=== PATIENT | female | born 1960 | race Caucasian/White ===

== ENCOUNTER 2017-05-18 06:54 | Day surgery (SDC) | payer OTHER ==
[2017-05-18] MEDS ORDERED: MIDAZOLAM 1 MG/ML 2 ML INJ ×2 (09:13→09:14)
[2017-05-18] MEDS ORDERED: FENTAnyl 50 MCG/ML VIAL (09:13)
== END 2017-05-18 14:46 | disposition home or self-care (01) ==
LOC: GIL 06:54
DX: Z12.11 Encounter for screening for malignant neoplasm of colon (principal); K64.4 Residual hemorrhoidal skin tags
CPT/HCPCS: 45378